=== PATIENT | male | born 1980 | race Caucasian/White ===

== ENCOUNTER 2018-06-10 15:37 | Emergency (ER) | payer SELFPAY ==
[~2018-06-10] VITALS: Ht 185.4 cm; Wt 99.8 kg
[2018-06-10] MEDS ORDERED: LIDOCAINE 1% INJ 20 ML 20 ML VIAL INJ ONE (15:45)
--- NOTE | 2018-06-10 15:49 | ED Lower Extremity ---
General Stated Complaint: LACERATIONS Source: patient, EMS Exam Limitations: no limitations (DARIAN BALDERRAMA APRN) History of Present Illness Date Seen by Provider: Jun 10, 2018 Time Seen by Provider: 15:45 Initial Comments To ER with a very small self-inflicted laceration to the volar side of the proximal left forearm. He cut himself intentionally with a razor blade just prior to arrival. EMS was summoned (I'm not sure by who) and he was transported to the emergency room. He's been here in [place] since February of this year and came here from [place]. 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 He states that he takes naltrexone and Zoloft for history of PTSD. He denies any alcohol or drug use today. He cannot identify any one reason that he to wants to hurt himself. Upon arrival he states "I don't want to talk, I just want to . I don't know why they stop the bleeding".. He states that he has had a tetanus shot in the past 5 years. Onset: just prior to arrival Severity: moderate Pain/Injury Location: left other (forearm) Method of Injury: other ( self-inflicted) (DARIAN BALDERRAMA APRN) Allergies and Home Medications Allergies Coded Allergies: No Known Drug Allergies (Unverified , 06/10/18) Patient Home Medication List Home Medication List Reviewed: Yes (DARIAN BALDERRAMA APRN) Constitutional: see HPI; No chills, No fever EENTM: see HPI Respiratory: no symptoms reported Cardiovascular: no symptoms reported Genitourinary: no symptoms reported Musculoskeletal: no symptoms reported Skin: no symptoms reported Psychiatric/Neurological: See HPI, Depressed, Emotional Problems (DARIAN BALDERRAMA APRN) Physical Exam Vital Signs Capillary Refill : (DARIAN BALDERRAMA APRN) Height, Weight, BMI Height: '" Weight: lbs. oz. kg; BMI Method: General Appearance: WD/WN, no apparent distress, other (flat affect, does not make eye contact, only answers direct questioning and does not elaborate) HEENT: PERRL/EOMI, normal ENT inspection Neck: non-tender, full range of motion Respiratory: no respiratory distress, no accessory muscle use Gastrointestinal: normal bowel sounds, non tender Hips: bilateral hip non-tender, bilateral hip normal inspection, bilateral hip normal range of motion Legs: bilateral leg non-tender, bilateral leg normal inspection, bilateral leg normal range of motion Knees: bilateral knee non-tender, bilateral knee normal inspection, bilateral knee normal range of motion Ankles: bilateral ankle non-tender, bilateral ankle normal inspection, bilateral ankle normal range of motion Neurologic/Psychiatric: alert, normal mood/affect, oriented x 3 Skin: normal color, warm/dry, other (there is a very small 1 cm laceration with depth to the subcutaneous tissues to the volar aspect of the left forearm proximally. There is no active bleeding. This will require 1 or 2 sutures.) ( DARIAN BALDERRAMA APRN) Procedures/Interventions Wound Location: Upper Extremities Other Wound Location Volar aspect of left forearm near elbow Wound Length (cm): 1.5 Wound's Depth, Shape: sub Q Irrigated w/ Saline (ccs): 50 Betadine Prep?: No Anesthesia: 1% Lidocaine Volume Anesthetic (ccs): 4 Suture: Vicryl Suture Size: 4-0 Number of Sutures: 3 Progress Forearm cleaned with sterile saline and chlorhexidine, wound irrigated with the same. 2cc of 1% lidocaine injected into each side of the wound and closed with 3 simple uninterrupted sutures before being covered with band-aid. (LEANA YUNG MED STUDENT) Progress/Results/Core Measures Results/Orders Lab Results Laboratory Tests Test 06/10/18 15:48 Range/Units White Blood Count 7.7 4.3-11.0 10^3/uL Red Blood Count 5.36 4.35-5.85 10^6/uL Hemoglobin 16.8 13.3-17.7 G/DL Hematocrit 47 40-54 % Mean Corpuscular Volume 87 80-99 FL Mean Corpuscular Hemoglobin 31 25-34 PG Mean Corpuscular Hemoglobin Concent 36 32-36 G/DL Red Cell Distribution Width 12.5 10.0-14.5 % Platelet Count 271 130-400 10^3/uL Mean Platelet Volume 9.6 7.4-10.4 FL Neutrophils (%) (Auto) 69 42-75 % Lymphocytes (%) (Auto) 21 12-44 % Monocytes (%) (Auto) 5 0-12 % Eosinophils (%) (Auto) 5 0-10 % Basophils (%) (Auto) 1 0-10 % Neutrophils # (Auto) 5.3 1.8-7.8 X 10^3 Lymphocytes # (Auto) 1.6 1.0-4.0 X 10^3 Monocytes # (Auto) 0.4 0.0-1.0 X 10^3 Eosinophils # (Auto) 0.4 H 0.0-0.3 10^3/uL Basophils # (Auto) 0.1 0.0-0.1 10^3/uL (LEANA YUNG MED STUDENT) Departure Communication (Admissions) I spoke with [facility] in [facility]. They have no inpatient psychiatric beds and have 8 patients waiting. I then spoke with [facility] in [facility]. They have no inpatient psychiatric beds and 9 waiting. I then spoke with [facility] in [facility]. They have no beds. I spoke with [facility] in [place]. They have no beds and the earliest except be tomorrow. I spoke with [facility] in [place] and they state they will have a bed that they like to speak with the patient. [facility] in [place] has accepted the patient to room 29 8. EMS has been notified. They're in route for transfer. 2002- started feeling chest. I'll order another milligram of Ativan and 25 mg of Benadryl. (DARIAN BALDERRAMA APRN) Impression Primary Impression: Suicidal intent Disposition: 01 HOME, SELF-CARE Condition: Stable Departure-Patient Inst. Referrals: UNKNOWN (PCP) Primary Care Physician DARIAN BALDERRAMA APRN Jun 10, 2018 15:49 LEANA YUNG MED STUDENT Jun 10, 2018 16:18
[2018-06-10] MEDS ORDERED: LORazepam INJ 2 MG/ML (ATIVAN) VIAL ONE (15:56)
[2018-06-10 15:57] LABS: BASOPHILS # (AUTO) 0.1 10^3/uL (0.0-0.1); BASOPHILS % (AUTO) 1 % (0-10); EOSINOPHILS # (AUTO) 0.4 10^3/uL (0.0-0.3); EOSINOPHILS % (AUTO) 5 % (0-10); HEMATOCRIT 47 % (40-54); HEMOGLOBIN 16.8 G/DL (13.3-17.7); LYMPHOCYTES # (AUTO) 1.6 X 10^3 (1.0-4.0); LYMPHOCYTES % (AUTO) 21 % (12-44); MEAN CORPUSCULAR HEMOGLOBIN 31 PG (25-34); MEAN CORPUSCULAR HGB CONC 36 G/DL (32-36); MEAN CORPUSCULAR VOLUME 87 FL (80-99); MEAN PLATELET VOLUME 9.6 FL (7.4-10.4); MONOCYTES # (AUTO) 0.4 X 10^3 (0.0-1.0); MONOCYTES % (AUTO) 5 % (0-12); NEUTROPHILS # (AUTO) 5.3 X 10^3 (1.8-7.8); NEUTROPHILS % (AUTO) 69 % (42-75); PLATELET COUNT 271 10^3/uL (130-400); RED BLOOD COUNT 5.36 10^6/uL (4.35-5.85); RED CELL DISTRIBUTION WIDTH 12.5 % (10.0-14.5); WHITE BLOOD COUNT 7.7 10^3/uL (4.3-11.0)
[2018-06-10] MEDS ORDERED: LORazepam INJ 2 MG/ML (ATIVAN) VIAL IVP PRN ×4 (16:15→20:15)
[2018-06-10 16:18] LABS: ALANINE AMINOTRANSFERASE 22 U/L (0-55); ALBUMIN 4.2 GM/DL (3.2-4.5); ALKALINE PHOSPHATASE 66 U/L (40-136); BILIRUBIN,TOTAL 0.5 MG/DL (0.1-1.0); BUN/CREATININE RATIO 16; CALCIUM 9.2 MG/DL (8.5-10.1); CARBON DIOXIDE 23 MMOL/L (21-32); CHLORIDE 104 MMOL/L (98-107); CREATININE SERUM 0.86 MG/DL (0.60-1.30); GFR ESTIMATED > 60; GLUCOSE 145 MG/DL (70-105); POTASSIUM 3.7 MMOL/L (3.6-5.0); SALICYLATE < 5.0 MG/DL (5.0-20.0); SODIUM 137 MMOL/L (135-145); TOTAL PROTEIN 7.2 GM/DL (6.4-8.2)
[2018-06-10 16:20] LABS: ACETAMINOPHEN < 10 UG/ML (10-30)
[2018-06-10 16:59] LABS: BILIRUBIN,URINE NEGATIVE (NEGATIVE); CLARITY,URINE CLEAR; COLOR,URINE YELLOW; GLUCOSE, URINE (UA) NEGATIVE (NEGATIVE); KETONES,URINE NEGATIVE (NEGATIVE); LEUKOCYTE ESTERASE ,URINE NEGATIVE (NEGATIVE); NITRITE,URINE NEGATIVE (NEGATIVE); PH,URINE 5 (5-9); PROTEIN,URINE NEGATIVE (NEGATIVE); UROBILINOGEN,URINE NORMAL (NORMAL)
[2018-06-10 17:08] LABS: BACTERIA,URINE NEGATIVE /HPF
[2018-06-10 17:12] LABS: AMPHETAMINE SCREEN, URINE NEGATIVE (NEGATIVE); BARBITURATE SCREEN URINE NEGATIVE (NEGATIVE); BENZODIAZEPINES SCREEN URINE NEGATIVE (NEGATIVE); CANNABINOID SCREEN, URINE NEGATIVE (NEGATIVE); COCAINE SCREEN URINE NEGATIVE (NEGATIVE); METHADONE STAT NEGATIVE (NEGATIVE); METHAMPHETAMINE SCREEN URINE S NEGATIVE (NEGATIVE); OPIATE SCREEN URINE NEGATIVE (NEGATIVE); OXYCODONE STAT NEGATIVE (NEGATIVE); PROPOXYPHENE STAT NEGATIVE (NEGATIVE); TRICYCLIC ANTIDEPRESSANTS SCRE NEGATIVE (NEGATIVE)
[2018-06-10] MEDS ORDERED: diphenhydrAMINE 50 MG/ML INJ (BENADRYL) IVP ONE (20:15)
[2018-06-10 21:09] VITALS: BP 136/92
== END 2018-06-10 21:09 ==
LOC: ER 15:40
DX: T14.91XA Suicide attempt, initial encounter (principal); S51.812A Laceration without foreign body of left forearm, initial encounter; F43.10 Post-traumatic stress disorder, unspecified; W26.8XXA Contact with other sharp object(s), not elsewhere classified, initial encounter
CPT/HCPCS: 36415; 80053; 80306; 80320; 80329; 81000; 85025; 93005